=== PATIENT | female | born 1950 | race Caucasian/White ===

== ENCOUNTER 2018-06-25 10:15 | Day surgery (SDC) | payer MEDICARE, OTHER ==
[~2018-06-25] VITALS: Ht 170.2 cm; Wt 106.0 kg
[~2018-06-25 10:15] MED LIST: AMLO10TA5 PO; ASPI81TA85 PO; BISOPRL/HCTZ PO; BUPIVACAINE HCL 0.5% 10 ML VIAL As Ordered ONE; CELE1CAP9 PO; CYCL10TA PO; GLUC1CAP9 PO; LIDOCAINE 1% MDV 20ML VIAL As Ordered ONE; LIDOCAINE 1% MDV 20ML VIAL SQ PRN; MAGN400C2 PO; METF500T13 PO; NAPR250T4 PO; OMEP20CA3 PO; SIMV5TAB12 PO; SUPETAB25 PO; VITA200016 PO
[2018-06-25] MEDS ORDERED: LR 1,000 ML IV ONE (10:30)
[2018-06-25] MEDS ORDERED: HYDR-3713 PO (12:13)
[2018-06-25 12:18] VITALS: BP 146/86
[2018-06-25] MEDS ORDERED: LIDOCAINE 2% INJ 100 MG/5 ML SDV (FOR ANES.) As Ordered ONE (12:20)
[2018-06-25] MEDS ORDERED: MIDAZOLAM INJ 2 MG/2 ML VIAL (J2250) As Ordered ONE (12:20)
[2018-06-25] MEDS ORDERED: ONDANSETRON 4MG/2ML VIAL (J2405) As Ordered ONE (12:20)
[2018-06-25] MEDS ORDERED: PROPOFOL 200 MG/20 ML VIAL As Ordered ONE (12:20)
[2018-06-25] MEDS ORDERED: fentaNYL 100 MCG/2 ML INJECTION (J3010) As Ordered ONE (12:20)
--- NOTE | 2018-06-26 07:41 | RO ---
DATE OF PROCEDURE: 06/25/2018 PREPROCEDURE DIAGNOSIS: Left heel mass. POSTPROCEDURE DIAGNOSIS: Left heel mass. OPERATIVE PROCEDURE: Left heel excision of soft tissue mass. SURGEON: Wilfredo Martin DPM MATHEMATICS DEPARTMENT CHAIR: ANESTHESIA: Monitored anesthesia care with preoperative injection of 10 mL of 1:1 mixture of 1% lidocaine plain and 0.50% Marcaine plain. ESTIMATED BLOOD LOSS: Minimal. MATERIALS: #4-0 nylon. INJECTABLES: None. COMPLICATIONS: None. SPECIMENS: Left heel mass. CONDITION: Stable. Yue Mcgowan is a 68-year-old female who presents to [facility] with complaints of painful mass in the left posterior heel. She presents today for surgical excision. The patient's side and site were identified and marked in preoperative area. Consent was reviewed and obtained. All risks, complications and alternatives to the procedure were explained to the patient in detail and all questions were answered. DESCRIPTION OF OPERATION: The patient was brought to the operating room and placed on the operating room table in prone position. Monitored anesthesia care was delivered by the anesthesia team. Preoperative injection of 10 mL of 1:1 mixture of 1% lidocaine plain and 0.50% Marcaine plain were injected into the left foot. The left foot was prepped and draped in normal sterile fashion. Tourniquet was applied to the left ankle and inflated at 250 mmHg. An elliptical incision was made surrounding the posterior heel mass and carried through with a #15 blade. The mass was immediately noted under the skin surface. It had a yellowish, whitish appearance. It was soft. There was no fluid inside. It measured roughly 2 cm in diameter. This was excised in total and sent for pathology identification. The site was irrigated with normal saline and the incision was repaired with #4-0 nylon. Sterile dressings were applied. The patient was brought to post anesthesia care unit (PACU), vitals signs stable and neurovascular status intact. She will be weightbearing as tolerated. She will followup in the office in two days.
== END 2018-06-25 13:37 | disposition home or self-care (01) ==
LOC: M SDC 10:15
PROVIDERS: ATTEND Podiatrist Foot & Ankle Surgery
DX: D21.22 Benign neoplasm of connective and other soft tissue of left lower limb, including hip (principal); I10 Essential (primary) hypertension; E11.42 Type 2 diabetes mellitus with diabetic polyneuropathy; E11.65 Type 2 diabetes mellitus with hyperglycemia; E78.00 Pure hypercholesterolemia, unspecified; K21.9 Gastro-esophageal reflux disease without esophagitis; M15.9 Polyosteoarthritis, unspecified; I47.2 Ventricular tachycardia; K44.9 Diaphragmatic hernia without obstruction or gangrene; R06.83 Snoring; H93.13 Tinnitus, bilateral; E66.01 Morbid (severe) obesity due to excess calories; Z68.36 Body mass index [BMI] 36.0-36.9, adult; Z88.5 Allergy status to narcotic agent; Z79.899 Other long term (current) drug therapy; Z90.710 Acquired absence of both cervix and uterus
CPT/HCPCS: 28039; 88305; 88342; J0690; J2250; J2405; J3010